=== PATIENT | female | born 1930 | race Caucasian/White ===

== ENCOUNTER 2018-07-10 15:46 | Inpatient (IN) ==
[2018-07-10] MEDS ORDERED: ASPIRIN PO ONE (15:53)
--- NOTE | 2018-07-10 16:22 | Diag Imaging Result Doc PS360 ---
EXAM: CHEST-2 VIEWS 07/10/2018 HISTORY: chest pain TECHNIQUE: PA and lateral chest COMMENT: There is COPD. There are some scattered calcified granulomata. The heart size and pulmonary vascularity are within normal limits. The aorta is slightly tortuous. There are no previous studies available for comparison. IMPRESSION: COPD. Electronically signed by Reinaldo Hayden 07/10/2018 4:20 PM
--- NOTE | 2018-07-10 16:23 | EKG Report ---
Test Performed on : 07/10/2018 3:56:26 PM Test Reason : chest pain Blood Pressure : / mmHG Vent. Rate : 073 BPM Atrial Rate : 073 BPM P-R Int : 194 ms QRS Dur : 076 ms QT Int : 374 ms P-R-T Axes : -08 -05 034 degrees QTc Int : 412 ms Normal sinus rhythm. Inferior infarct , age undetermined Anterior infarct , age undetermined Abnormal ECG No previous ECGs available Unconfirmed Result
[2018-07-10 16:38] LABS: BASO# 0.04 X1000 (0.0-0.2); BASO% 0.5 % (0.0-0.8); EOS# 0.11 X1000 (0.0-0.7); EOS% 1.3 % (0.0-10.0); HEMATOCRIT 45.6 % (37.0-47.0); HEMOGLOBIN 14.7 g/dL (12.0-16.0); IMM GRAN# 0.02 X1000 (0.0-0.04); IMM GRAN% 0.2 % (0.0-0.5); LYMPH# 2.38 X1000 (1.2-3.4); LYMPH% 28.1 % (20.5-51.1); MCH 27.5 PG (27-31); MCHC 32.2 g/dL (33-37); MCV 85.4 FL (81-99); MONO# 0.91 X1000 (0.11-0.59); MONO% 10.8 % (1.7-9.3); MPV 9.9 FL (7.4-10.4); NEUT% 59.1 % (42.2-75.2); PLT 218 X1000 (130-400); RBC 5.34 XMIL (4.2-5.4); RDW 14.6 % (11.5-14.5); WBC 8.46 X1000 (4.8-10.8)
[2018-07-10 16:56] LABS: AGAP 9; ALB/GLOB RATIO 1.2; ALKALINE PHOSPHATASE 77 U/L (32-104); BUN 24 mg/dL (8-22); CALCIUM 9.1 mg/dL (8.8-10.2); CHLORIDE 99 mmol/L (98-107); CK PROFILE 42 U/L (24-173); COSMO 281; CREATININE 0.8 mg/dL (0.5-0.9); GLUCOSE 87 mg/dL (70-104); GOT 17 U/L (10-30); GPT 15 U/L (10-36); POTASSIUM 3.9 mmol/L (3.5-5.1); SODIUM 139 mmol/L (136-145); TCO2 31 mmol/L (25-35); TOTAL PROTEIN 7.4 g/dL (6.3-8.3)
[2018-07-10 17:00] LABS: INR 0.94; PROTIME 13.4 Seconds (11.0-16.0)
[2018-07-10] MEDS ORDERED: PROTONIX PO ONE (17:03)
[2018-07-10 17:27] LABS: PTT 26.9 Seconds (22.3-41.8)
--- NOTE | 2018-07-10 18:59 | PROVIDER DOCUMENTATION ---
This chart was entered by Radha Pena Scribe, acting as scribe for Robyn Washington MD. HPI-Chest Pain - General Chief Complaint: Chest Pain Stated Complaint: DR REFERRAL EKG Time Seen by Provider: 07/10/18 16:42 Source: patient Allergies/Adverse Reactions: Patient Allergies Allergy/AdvReac Type Severity Reaction Status Date / Time procaine [From Novocain] Allergy Unknown Verified 07/10/18 16:41 Home Medications: Home Medication List Medication Instructions Recorded Confirmed Last Taken Type Hydrochlorothiazide 12.5 mg PO DAILY 07/10/18 07/10/18 Unknown History - History of Present Illness-CP Nature of Presenting Problem: 87 yof presents to the ed from urgent care. pt had abnormal ekg and was told to come to ed. pt c/o chest pain as tingling radiating to LUE and episodes last 5- 10minute episode on and off. associated symptoms with nausea, lightheadedness and sob, but her sob has been ongoing. Location: reports: other (left anterior chest pain) Chest Pain Radiation: reports: arms (left), epigastric Quality of Pain: reports: other (tingling) Onset/Duration: this afternoon Timing: still present, intermittent Context/Activities at Onset: reports: light activity Modifying Factors: improves with: nothing Associated Symptoms: reports: abdominal pain, dizziness, nausea, shortness of breath (chronic). denies: back pain, syncope, vomiting Nitro Today/Relief: no nitro taken today Aspirin Treatment Today: 325 mg x 1, provided by ED Similar Symptoms Previously?: No Recently Seen Here or By Another Healthcare Provider: No Review of Systems - Adult - REVIEW OF SYSTEMS - ADULT Constitutional: reports: no symptoms reported Eyes: reports: no symptoms reported Ears, Nose, Mouth & Throat: reports: no symptoms reported Cardiovascular: reports: see HPI, chest pain. denies: palpitations, syncope Respiratory: reports: see HPI, shortness of breath (chronic) Gastrointestinal: reports: see HPI, abdominal pain, nausea. denies: diarrhea, vomiting Genitourinary: reports: no symptoms reported Musculoskeletal: denies: back pain, neck pain Integumentary: reports: no symptoms reported Neurological: reports: see HPI, dizziness/vertigo, paresthesia. denies: loss of balance, numbness, seizure, slurred speech, syncope, tremors Psychiatric: reports: no symptoms reported Endocrine: reports: no symptoms reported Hematologic/Lymphatic: reports: no symptoms reported Allergic/Immunologic: reports: no symptoms reported All Other Systems: Reviewed and Negative Past History - Adult - PAST MEDICAL HISTORY-ADULT Review of Records: reports: Old Records Reviewed, Nursing Assessment Review, Medications Reviewed Major Childhood Illnesses: reports: denies history Cardiovascular: reports: HTN Respiratory: reports: denies history Gastrointestinal: reports: GERD Obstetrical/Gynecological: reports: denies history Genitourinary: reports: denies history Musculoskeletal: reports: denies history Hand Dominance: Right Handed Neurological: reports: denies history Psychiatric: reports: denies history Endocrine/Immune: reports: denies history Other Conditions: reports: denies history - PRIOR SURGERIES/PROCEDURES Surgical/Procedure History: reports: hysterectomy, tonsillectomy, orthopedic (extremity) - IMMUNIZATION STATUS Childhood Immunizations: See Nurse Assessment Flu Vaccine: See Nurse Assessment - FAMILY HISTORY Family History: reviewed, not pertinent - SOCIAL HISTORY Smoking: denies Substance Use: denies Living Situation: family Physical Exam-General - PHYSICAL EXAM-ADULT Initial Vital Signs Reviewed: Yes - CONSTITUTIONAL General Appearance: appears well, alert, mild distress - EYES Eyes: PERRL/EOMI, pink conjunctivae - HEAD, EARS, NOSE, MOUTH & THROAT HENMT: moist mucous membranes, normal ENT inspection - NECK Neck: non-tender, full range of motion, supple, normal inspection - RESPIRATORY Respiratory: chest non-tender, lungs clear, normal breath sounds, other (pt has chronic sob) - GASTROINTESTINAL (ABDOMEN) Abdominal Exam: normal bowel sounds, soft, no organomegaly, no pulsatile mass, tenderness (epigastric) - LYMPHATIC Lymphatic: no adenopathy - MUSCULOSKELETAL Back Exam: normal inspection, no CVA tenderness, no vertebral tenderness Extremity: normal range of motion, non-tender, normal gait, normal inspection, no pedal edema, no calf tenderness, normal capillary refill, pelvis stable - SKIN Integumentary: normal color, normal turgor - NEUROLOGIC Neurologic: grossly normal, no motor/sensory deficits - PSYCHIATRIC Psych/Mental Status: normal mood/affect, normal thought content, normal thought process, oriented x 3 - HEART Score HEART Score: History: Slightly Suspicious HEART Score: ECG: Non-Specific Repolarization Disturbance/LBBB/PM HEART Score: Age: > or = 65 Years HEART Score: Risk Factors for Atherosclerotic Disease: 1 or 2 Risk Factors HEART Score: Troponin: < or = Normal Limit Total HEART Score:: 4 Progress - PLAN OF CARE/RESULTS Progress/Plan/Lab Results: Vital Signs - 8 hr 07/10/18 15:50 Temperature 98.0 F Pulse Rate 75 Respiratory Rate 19 Blood Pressure 156/87 O2 Sat by Pulse Oximetry 96 Laboratory Results - last 24 hr 07/10/18 07/10/18 07/10/18 16:00 16:00 16:00 WBC 8.46 RBC 5.34 Hgb 14.7 Hct 45.6 MCV 85.4 MCH 27.5 MCHC 32.2 L RDW Std Deviation 14.6 H Plt Count 218 MPV 9.9 Immature Gran % (Auto) 0.2 Neut % (Auto) 59.1 Lymph % (Auto) 28.1 [place] % (Auto) 10.8 H Eos % (Auto) 1.3 Baso % (Auto) 0.5 Immature Gran # (Auto) 0.02 Neut # (Auto) 5.00 Lymph # (Auto) 2.38 [place] # (Auto) 0.91 H Eos # (Auto) 0.11 Baso # (Auto) 0.04 PT INR PTT (Actin FS) Sodium 139 Potassium 3.9 Chloride 99 Carbon Dioxide 31 Anion Gap 9 BUN 24 H Creatinine 0.8 BUN/Creatinine Ratio 30 Glucose 87 Calculated Osmolality 281 Calcium 9.1 Total Bilirubin 0.50 AST 17 ALT 15 Alkaline Phosphatase 77 Creatine Kinase 42 Troponin T Puw-B-Oiqzikzvyge Pept 136 Total Protein 7.4 Albumin 4.0 Globulin 3.4 Albumin/Globulin Ratio 1.2 07/10/18 07/10/18 07/10/18 16:00 16:00 17:38 WBC RBC Hgb Hct MCV MCH MCHC RDW Std Deviation Plt Count MPV Immature Gran % (Auto) Neut % (Auto) Lymph % (Auto) [place] % (Auto) Eos % (Auto) Baso % (Auto) Immature Gran # (Auto) Neut # (Auto) Lymph # (Auto) [place] # (Auto) Eos # (Auto) Baso # (Auto) PT 13.4 INR 0.94 PTT (Actin FS) 26.9 Sodium Potassium Chloride Carbon Dioxide Anion Gap BUN Creatinine BUN/Creatinine Ratio Glucose Calculated Osmolality Calcium Total Bilirubin AST ALT Alkaline Phosphatase Creatine Kinase 66 Troponin T < 0.010 Tzt-J-Wcnzueeojlq Pept Total Protein Albumin Globulin Albumin/Globulin Ratio 07/10/18 17:38 WBC RBC Hgb Hct MCV MCH MCHC RDW Std Deviation Plt Count MPV Immature Gran % (Auto) Neut % (Auto) Lymph % (Auto) [place] % (Auto) Eos % (Auto) Baso % (Auto) Immature Gran # (Auto) Neut # (Auto) Lymph # (Auto) [place] # (Auto) Eos # (Auto) Baso # (Auto) PT INR PTT (Actin FS) Sodium Potassium Chloride Carbon Dioxide Anion Gap BUN Creatinine BUN/Creatinine Ratio Glucose Calculated Osmolality Calcium Total Bilirubin AST ALT Alkaline Phosphatase Creatine Kinase Troponin T < 0.010 Kre-F-Jezrgwqdmux Pept Total Protein Albumin Globulin Albumin/Globulin Ratio Orders Category Date Time Status Cardiac Monitoring DIRECTED Care 07/10/18 15:53 Active Oxygen Therapy- ED Nursing DIRECTED Care 07/10/18 15:53 Active Saline Loc NOW Care 07/10/18 15:53 Active CHEST-2 VIEWS [RAD] Stat Exams 07/10/18 15:53 Completed CBC WITH ELECTRONIC DIFF [HEME] Stat Lab 07/10/18 16:00 Completed CK PROFILE [SP CHEM] Stat Lab 07/10/18 16:00 Completed CK PROFILE [SP CHEM] Stat Lab 07/10/18 17:38 Completed COMPREHENSIVE METABOLIC PANEL [CHEM] Stat Lab 07/10/18 16:00 Completed PRO B-NATRIURETIC PEPTIDE Stat Lab 07/10/18 16:00 Completed PROTIME WITH INR [COAG] Stat Lab 07/10/18 16:00 Completed PTT [COAG] Stat Lab 07/10/18 16:00 Completed TROPONIN T Stat Lab 07/10/18 16:00 Completed TROPONIN T Stat Lab 07/10/18 17:38 Completed Aspirin Med 07/10/18 15:53 Discontinued 325 mg PO NOW ONE Pantoprazole [Protonix] Med 07/10/18 17:03 Discontinued 40 mg PO NOW ONE CP/SOB/Palp >45 yrs of Age Stat Oth 07/10/18 15:53 Ordered EKG [EKG] Stat Ther 07/10/18 15:53 Draft EKG [EKG] Stat Ther 07/10/18 17:28 Ordered [facility] [address], [address], [place] [address] Department of Imaging Patient: JENNIFER KING ADM Date: 07/10/18 MR#: [id number] : 1930 ADM Status: PRE ER Age/Sex: 87/F Room/Bed: Loc: ED Ordering Physician: Valeriano Patterson MD Family Physician: Garret Real MD Reason for Procedure: chest pain Signed EXAM: CHEST-2 VIEWS 07/10/2018 HISTORY: chest pain TECHNIQUE: PA and lateral chest COMMENT: There is COPD. There are some scattered calcified granulomata. The heart size and pulmonary vascularity are within normal limits. The aorta is slightly tortuous. There are no previous studies available for comparison. IMPRESSION: COPD. Electronically signed by Reinaldo Hayden 07/10/2018 4:20 PM 07/10/18 1620 Interpreting Physician: Reinaldo Hayden MD Dictated Date/Time: 07/10/18 1618 cc: Valeriano Patterson MD; Garret Real MD Result Diagrams: 07/10/18 16:00 07/10/18 16:00 - REASSESSMENT Reassessment #1 Time Reassessed: 17:40 (pt is resting in bed) Status: improving Reassessment #2 Time Reassessed: 17:44 (pt wants to leave ) Status: unchanged - EKG 1 Time of EKG reading by physician:: 15:56 EKG Read and Signed by:: Robyn Washington EKG Interpretation (*Must complete 3 of following elements*): Abnormal Rate: 73 Rhythm: nsr [place]: normal QRS: normal MI Interval: normal ST Wave: normal Prior EKG Comparison: no prior EKG Comments: inferior/anterior infarct, age undetermined 2 Time of EKG reading by physician:: 17:35 EKG Read and Signed by:: Robyn Washington EKG Interpretation (*Must complete 3 of following elements*): Normal Rate: 71 Rhythm: sinus rhythm with 1st degree av block [place]: normal QRS: normal MI Interval: normal ST Wave: normal Prior EKG Comparison: changes noted - XRAY 1 XRAY: Bilateral XRAY Study: Chest Impression: See EMR Report (EXAM: CHEST-2 VIEWS 07/10/2018 HISTORY: chest pain TECHNIQUE: PA and lateral chest COMMENT: There is COPD. There are some scattered calcified granulomata. The heart size and pulmonary vascularity are within normal limits. The aorta is slightly tortuous. There are no previous st udies available for comparison. IMPRESSION: COPD. Electronically signed by Reinaldo Hayden 07/10/2018 4:20 PM 07/10/18 1620 Interpreting Physician: Reinaldo Hayden MD Dictated Date/Time: 07/10/18 1618 cc: Valeriano Patterson MD; Garret Real MD) - CONSULTS/PCP/HOSPITALIST Notification #1 *Consult/PCP/Hospitalist*: Dr. Real Time Discussed: 18:58 (ACS r/o) Consult Disposition: Admit Departure - Departure Date of Disposition Decision: 07/10/18 Time of Disposition Decision: 18:58 DIAGNOSIS: ACS (acute coronary syndrome) Disposition: ADMITTED INPATIENT 09 Certified Medical Emergency: Emergent Condition: Stable Referrals and Follow-Ups: Garret Real MD [Primary Care Provider] - Call for Appoint. 1-2days - Critical Care Note This patient required my direct & personal management of CC.: No Attestation - Physician/ KELLEY Attestation Patient care was provided by Advanced Practice Provider:: No The physician spent face to face time with patient:: Yes Advanced Practice Provider documentation review:: Supervising physician onsite and consulted in the evaluation and care of this patient. The physician did have a face to face encounter with the patient. This chart was documented by the indicated scribe, (Radha Pena Scribe) and accurately reflects the services I performed and decisions made by me, Robyn Washington MD, as attested by the provider's signature.
--- NOTE | 2018-07-11 03:30 | HISTORY AND PHYSICAL ---
CHIEF COMPLAINT: Chest pain per and nausea. PRESENT ILLNESS: This is the first recent [facility] admission for this 87-year-old white female, who presented to a walk-in clinic complaining of chest discomfort. She had been this morning to a bank and social security related to her sister's finances. There was increased stress and she started to have some chest discomfort and nausea. She had an EKG and lab done at a walk-in clinic, which revealed some abnormalities on EKG and hypertension. She was referred to [facility] [place] for further evaluation. EKG showed possible Q in III and aVF, suggestive of old inferior [place]. There were no acute ST changes. Chest x-ray was normal. Two troponin's and CKs were normal. She is admitted for further evaluation and treatment. There is no history of similar recent chest discomfort. She had some discomfort into her left shoulder and down to her elbow. This was concerning causing her to present to Urgent Care. She has had no vomiting, and no diarrhea. PAST MEDICAL HISTORY: No recent hospitalizations or surgeries. PREVIOUS SURGERIES: Include tonsillectomy in 1946, hysterectomy 1961, fistulectomy 1961, back surgery in 2003, knee surgeries in 2016 and 2018. PRESENT MEDICATIONS: Hydrochlorothiazide 12.5 mg, 1 daily. ALLERGIES: Novocain and penicillin. REVIEW OF SYSTEMS: Occasional anxiety, otherwise unremarkable. SOCIAL HISTORY: There is no history of smoking or alcohol usage. IMAGING: Chest x-ray was read as mild COPD. PHYSICAL EXAMINATION: VITAL SIGNS: Temperature 98, heart rate 66, respirations 20, blood pressure 146/78, O2 saturation on room air 96%. GENERAL: Patient is a well-developed, well-nourished, white female, in no apparent distress. She states her chest pain has resolved. HEENT: Pupils equal, round, and reactive to light. Pharynx benign with no erythema or exudate. NECK: Supple with no mass or lymphadenopathy. There is no carotid bruit. HEART: Regular in rate and rhythm with no murmur, rub or gallop. LUNGS: Clear with no rales or rhonchi. There is no chest wall tenderness to palpation. ABDOMEN: Soft with no mass, tenderness, or organomegaly. Bowel sounds are normal. EXTREMITIES: No cyanosis, clubbing, or edema. RECTAL AND GENITALIA: Deferred. NEUROLOGICAL: Grossly intact. IMPRESSION: Chest pain, mild shortness of breath, and nausea, hypertension. PLAN: Admit for further evaluation and treatment, including echocardiogram, serial enzymes, EKG in a.m. cc: Garret Real MD
[2018-07-11 05:07] LABS: URINE SOURCE CLEAN CATCH
[2018-07-11 05:10] LABS: BILIRUBIN URINE NEGATIVE (NEGATIVE); BLOOD URINE NEGATIVE (NEGATIVE); COLOR YELLOW; GLUCOSE URINE NEGATIVE (NEGATIVE); KETONE URINE NEGATIVE (NEGATIVE); LEUKOCYTES URINE NEGATIVE (NEGATIVE); NITRITE URINE NEGATIVE (NEGATIVE); PH URINE 6.5; PROTEIN URINE NEGATIVE (NEGATIVE); TURBIDITY URINE CLEAR (CLEAR); UROBILINOGEN URINE NORMAL (NORMAL)
[2018-07-11 05:12] LABS: UR EPITHELIAL CELLS <10 /HPF (<10); URINE BACTERIA NEGATIVE /HPF; URINE RBC <10 /HPF (<10); URINE WBC <10 /HPF (<10)
--- NOTE | 2018-07-11 07:15 | EKG Report ---
Test Performed on : 07/11/2018 07:01:46 AM Test Reason : chest pain Blood Pressure : / mmHG Vent. Rate : 064 BPM Atrial Rate : 064 BPM P-R Int : 228 ms QRS Dur : 086 ms QT Int : 412 ms P-R-T Axes : 060 004 058 degrees QTc Int : 425 ms Sinus rhythm. with 1st degree AV block. Otherwise normal ECG When compared with ECG of 10-JUL-2018 17:35, (Unconfirmed) No significant change was found Confirmed by Haja LEACH, Cedrick Tariq ([id number]) on 07/15/2018 12:41:10 PM
--- NOTE | 2018-07-11 07:18 | EKG Report ---
Test Performed on : 07/10/2018 5:35:00 PM Test Reason : cp Blood Pressure : / mmHG Vent. Rate : 071 BPM Atrial Rate : 071 BPM P-R Int : 228 ms QRS Dur : 082 ms QT Int : 398 ms P-R-T Axes : 068 005 053 degrees QTc Int : 432 ms Sinus rhythm. with 1st degree AV block. Otherwise normal ECG When compared with ECG of 10-JUL-2018 15:56, (Unconfirmed) OK interval has increased Criteria for Anterior infarct are no longer present Criteria for Inferior infarct are no longer present Unconfirmed Result
[2018-07-11 07:51] LABS: AMYLASE 33 U/L (20-200); CHOLESTEROL 133 mg/dL (0-200); CK PROFILE 32 U/L (24-173); HDL 45 mg/dL (45-65); LDL 62 mg/dL; TRIGLYCERIDES 131 mg/dL (35-135); VLDL 26 mg/dL
[2018-07-11] MEDS ORDERED: HYDROCHLOROTHIAZIDE PO SCH (09:00)
--- NOTE | 2018-07-11 11:12 | PROGRESS NOTE ---
DATE: 07/11/2018 VITAL SIGNS: Temperature 97.8 degrees, heart rate 66, respirations 16, blood pressure 146/64 and O2 saturation on room air 99%. LABORATORY: Troponin is less than 0.01. CPK 32. Lipids reveal triglycerides 131, total cholesterol 133, LDL 62, HDL 46, and amylase was 33. DISCUSSION: Patient is feeling well this morning. She is having an echocardiogram done this morning. She will most likely be discharged today home. cc: Garret Real MD
[2018-07-11 12:24] VITALS: BP 143/81
--- NOTE | 2018-07-11 14:07 | ECHO REPORT ---
ORDER DATE: 07/11/2018 INDICATIONS: Abnormal EKG, chest pain. FINDINGS: 1. The right atrium appears normal in size. 2. Do not see any clear evidence of significant tricuspid regurgitation. 3. Normal RV size and systolic function. 1. Trace pulmonic insufficiency. 2. Normal left atrial size with a volume index of 20, dimension of 3.7 cm. 3. No mitral valve prolapse. Trace mitral regurgitation. 4. Normal LV size, no evidence of left ventricular hypertrophy. LV dimension is 4.4 cm with wall thicknesses, posterior and interventricular septal wall thicknesses of 1.1 cm each. Normal LV systolic function. Estimated EF of 60% with normal wall motion. 5. Aortic valve appears to open well with no significant insufficiency or stenosis. 6. Aorta appears normal in visualized segments. 7. No pericardial effusion seen. cc: MD Garret Michaud MD
--- NOTE | 2018-07-12 08:31 | DISCHARGE SUMMARY ---
ADMISSION DATE: 07/10/2018 DISCHARGE DATE: 07/11/2018 FINAL DIAGNOSES: 1. Chest pain, atypical, most likely related to stress. 2. Hypertension. DISCHARGE MEDICATIONS: 1. Hydrochlorothiazide 12.5 mg one daily. 2. Alprazolam 0.25 mg q.6 hours p.r.n. anxiety (20). This is the first recent [facility] admission for this 87-year-old white female who had some stress related to her sister's finances the day of admission and started to have some substernal chest pain radiating to her left shoulder and down her arm. She had initially presented to a walk- in clinic where an EKG was done and because it was a little abnormal, she was sent to [facility] ER for evaluation. EKG showed questionable old inferior infarct but no acute ST-T changes. Chest x-ray was unremarkable. Cardiac enzymes including troponin x2 were normal. She was admitted for observation. INITIAL LABORATORY: Hemoglobin 14.7, hematocrit 45.6, white blood count 8,400 with normal differential. CPK was 66. Troponin less than 0.01. ProBNP 136. HOSPITAL COURSE: She had no further chest discomfort and is feeling well this morning. Echocardiogram was done and report is pending. Lipids were normal with total cholesterol 133, triglyceride 131, LDL 62, HDL 45. Her amylase was normal at 33. She had some nausea with the chest pain prior to admission but no further nausea or vomiting. She is discharged home on her usual medication plus alprazolam. To return to the office in one week for followup. cc: Garret Real MD
== END 2018-07-11 12:46 | disposition home or self-care (01) | DRG 313 ==
LOC: ED 15:46 → 3N 19:03
PROVIDERS: ADMIT Family Medicine; ATTEND Family Medicine
CPT/HCPCS: 71020; 71046; 80053; 80061; 81001; 82150; 82550; 83880; 84484; 85025; 85610; 85730; 93005; 93010; 93306; 99285; A9270